=== PATIENT | female | born 1955 | race Caucasian/White ===

== ENCOUNTER → 2024-03-20 16:02 | Outpatient (REF) | payer MEDICARE, OTHER, SELFPAY | LOC: HWRCS 16:02 | PROVIDERS: ATTENDING PHYSICIAN Internal Medicine Cardiovascular Disease; FAMILY PHYSICIAN Emergency Medicine | DX: Z95.2 Presence of prosthetic heart valve (principal) | CPT/HCPCS: 93306 ==

== ENCOUNTER → 2024-03-21 09:59 | Outpatient (REF) | payer MEDICARE, OTHER, SELFPAY | LOC: DHVS 09:59 | PROVIDERS: ATTENDING PHYSICIAN Surgery Vascular Surgery | DX: I65.23 Occlusion and stenosis of bilateral carotid arteries (principal) | CPT/HCPCS: 93880 ==

== ENCOUNTER → 2024-03-28 11:49 | Outpatient (REF) | payer MEDICARE, OTHER, SELFPAY | LOC: DHCBC/DCA 11:49 | PROVIDERS: ATTENDING PHYSICIAN Internal Medicine Cardiovascular Disease; FAMILY PHYSICIAN Emergency Medicine | DX: Z86.39 Personal history of other endocrine, nutritional and metabolic disease (principal); R06.09 Other forms of dyspnea | CPT/HCPCS: 78452; 93017; A9500 ==

== ENCOUNTER → 2024-04-26 15:10 | Outpatient (REF) | payer MEDICARE, OTHER, SELFPAY | LOC: RAD 15:10 | PROVIDERS: ATTENDING PHYSICIAN Internal Medicine Cardiovascular Disease; FAMILY PHYSICIAN Emergency Medicine | DX: Z95.2 Presence of prosthetic heart valve (principal); I10 Essential (primary) hypertension; Z86.39 Personal history of other endocrine, nutritional and metabolic disease; E78.2 Mixed hyperlipidemia; Z86.2 Personal history of diseases of the blood and blood-forming organs and certain disorders involving the immune mechanism; I77.9 Disorder of arteries and arterioles, unspecified; R91.1 Solitary pulmonary nodule; G47.33 Obstructive sleep apnea (adult) (pediatric); N18.31 Chronic kidney disease, stage 3a; M79.604 Pain in right leg; M79.605 Pain in left leg; R06.09 Other forms of dyspnea | CPT/HCPCS: 93922; 93925 ==

== ENCOUNTER → 2024-05-02 12:11 | Outpatient (REF) | payer MEDICARE, OTHER, SELFPAY ==
[2024-05-02 14:03] LABS: Blood Urea Nitrogen 26 mg/dl (7-17); Calcium 9.3 mg/dl (8.4-10.2); Carbon Dioxide 26 mmol/L (22-30); Chloride 104 mmol/L (98-107); Glucose 110 mg/dl (70-99); Potassium 4.4 mmol/L (3.5-5.1); Sodium 139 mmol/L (135-145); eGFR > 60.00
== END ==
LOC: REG 12:11
PROVIDERS: ATTENDING PHYSICIAN Physician Assistant; FAMILY PHYSICIAN Emergency Medicine
DX: I65.23 Occlusion and stenosis of bilateral carotid arteries (principal)
CPT/HCPCS: 36415; 80048

== ENCOUNTER → 2024-05-03 09:08 | Outpatient (REF) | payer MEDICARE, OTHER, SELFPAY | LOC: RAD 09:08 | PROVIDERS: ATTENDING PHYSICIAN Surgery Vascular Surgery; FAMILY PHYSICIAN Emergency Medicine | DX: I65.23 Occlusion and stenosis of bilateral carotid arteries (principal) | CPT/HCPCS: 70496; 70498; Q9967 ==

== ENCOUNTER 2024-06-07 08:18 | Day surgery (SDC) | payer MEDICARE, OTHER, SELFPAY ==
[2024-06-07 08:42] VITALS: BMI 25.9
[2024-06-07 09:22] LABS: Hematocrit 35.3 % (37.0-47.0); Hemoglobin 12.1 g/dL (12.0-16.0); Mean Corp Hgb Conc. 34.3 g/dL (33.0-37.0); Mean Corpuscular Hgb 29.9 pg (27.0-31.0); Mean Corpuscular Volume 87.2 fL (81.0-99.0); Mean Platelet Volume 10.4 fL (7.4-10.4); Platelet Count 239 10^3/uL (130-400); Red Blood Cell Count 4.05 10^6/uL (4.20-5.40); Red Cell Dist. Width 12.5 % (11.5-14.5); White Blood Cell Count 6.9 10^3/uL (4.8-10.8)
[2024-06-07 09:28] LABS: INR 0.95; PT 12.5 Sec (11.4-14.6)
[2024-06-07 09:29] LABS: APTT 25.9 Sec (23.4-35.0)
[2024-06-07 09:31] LABS: Blood Urea Nitrogen 19 mg/dl (7-17); Calcium 9.1 mg/dl (8.4-10.2); Carbon Dioxide 26 mmol/L (22-30); Chloride 102 mmol/L (98-107); Estimated Creatinine Clearance 43 ml/min; Glucose 143 mg/dl (70-99); Potassium 4.3 mmol/L (3.5-5.1); Sodium 139 mmol/L (135-145); eGFR > 60.00
== END 2024-06-07 09:25 | disposition home or self-care (01) ==
LOC: CATH 08:18
PROVIDERS: ATTENDING PHYSICIAN Surgery Vascular Surgery; FAMILY PHYSICIAN Emergency Medicine; OTHER PHYSICIAN Internal Medicine Cardiovascular Disease
DX: I70.212 Atherosclerosis of native arteries of extremities with intermittent claudication, left leg (principal); Z79.82 Long term (current) use of aspirin; Z53.09 Procedure and treatment not carried out because of other contraindication
CPT/HCPCS: 80048; 85027; 85610; 85730

== ENCOUNTER 2024-06-14 06:17 | Day surgery (SDC) | payer MEDICARE, OTHER, SELFPAY ==
[2024-06-14] VITALS (19 sets, daily range): BP systolic 131–179; BP diastolic 69–84; BMI 25.8
[2024-06-14 06:57] LABS: Glucose - Point of Care 134 mg/dl (70-99)
[2024-06-14] MEDS: NSS 500 IV (07:01)
--- NOTE | 2024-06-14 07:25 | W.SUR.PREOP ---
Pre-Operative Surgical Note
-
I have examined this patient prior to the performance of the scheduled procedure.
The patient's condition is unchanged from the time of the current History and
Physical and the patient is able to undergo the scheduled procedure.
[2024-06-14] MEDS: PLAVIX 300 MG PO (09:40)
[2024-06-14 09:57] LABS: Glucose - Point of Care 147 mg/dl (70-99)
--- NOTE | 2024-06-14 09:58 | W.SUR.POST ---
Surgical Immediate Post Op
Note
Pre Op Diagnosis: PAD
Post Op Diagnosis: PAD
Procedure Performed: Left lower extremity angiogram, shockwave lithotripsy to SFA-popliteal artery, stent placement to SFA
Primary Surgeon: Pat
Anesthesia: Local and sedation
Estimated Blood Loss: Less than 2 cc
Fluids: See anesthesia flowsheet
Drains/Shunts: None
Specimens/Cultures: None
Doppler/Duplex/Angio (Y/N): Y
Complications: None
Operative Findings: Successful stent placement
[2024-06-14] MEDS: NSS 1000 IV (10:10)
[2024-06-14 10:59] LABS: ALT (SGPT) 17 U/L (0-35); AST (SGOT) 28 U/L (14-36); Albumin 4.3 g/dl (3.5-5.0); Alkaline Phosphatase 72 U/L (38-126); Total Bilirubin 0.5 mg/dl (0.2-1.3); Total Protein 6.9 g/dl (6.3-8.2)
--- NOTE | 2024-06-14 16:29 | OR.RPT ---
Operative Report
Operative Report
Date of Operation: 06/14/2024
Pre Op Diagnosis: Debilitating left lower extremity claudication
Post Op Diagnosis: Debilitating left lower extremity claudication
Procedure:
1.) Intravascular lithotripsy to left above-knee popliteal artery and superficial femoral artery (6 mm x 60 mm M5+ shockwave balloon)
2.) Balloon angioplasty and drug-eluting stent to superficial femoral artery stenosis (6 mm x 120 mm Zilver PTX)
3.) Diagnostic aortobiiliac arteriogram
4.) Diagnostic BILATERAL lower extremity arteriograms
5.) Ultrasound-guided percutaneous access to the right common femoral artery
Surgeon: Caesar Stewart III, MD
Anesthesia: Sedation with local
Fluoroscopy:
30 min
112 mGy
24.32 Gy.cm2
Complications: None
Estimated Blood Loss: Minimal
History and Indications for Procedure: 68-year-old female with known peripheral arterial occlusive disease and debilitating left lower extremity claudication
Procedure in Detail: Walker Riley was correctly identified and placed supine on the operating table. After adequate induction of anesthesia the bilateral groins were prepped and draped in the usual sterile fashion. A timeout was performed with the
nursing and anesthesia staff confirming the patient's identity as well as the nature and laterality of the procedure.
The right common femoral artery was identified under ultrasound guidance. The artery was patent. The superior and inferior aspects of the femoral head were identified with radiographic guidance and marked at the skin level. The proposed puncture
site was infiltrated with local anesthesia. We saved a copy of the ultrasound image to the medical record. Under ultrasound guidance we accessed the right common femoral artery with a micropuncture needle and upsized to a 5 Fr sheath over a [employer]
wire. The wire and a ShepherPlaid hook flush catheter were advanced into the distal abdominal aorta and a diagnostic aorto-biiliac arteriogram was performed:
AORTO-ILIAC ARTERIOGRAM:
Aorta: Widely patent with no stenosis identified
Right common iliac artery: Widely patent with no stenosis identified
Right external iliac artery: Widely patent with no stenosis identified
Left common iliac artery: Widely patent with no stenosis identified
Left external iliac artery: Widely patent with no stenosis identified
Under roadmap guidance using a Glidewire and the SheLingueeerPlaid hook catheter we selected the left common iliac artery and then the external iliac artery. A catheter was tracked up and over the aortic bifurcation and placed in the distal external iliac
artery. A diagnostic left lower extremity arteriogram was then performed which demonstrated the following:
LEFT LOWER EXTREMITY:
Common femoral artery: Patent with no stenosis identified
Profunda femoral artery: Patent with no stenosis identified
Superficial femoral artery: Patent. Moderate degree of stenosis identified proximally. Scattered areas of heavily calcified high-grade stenosis seen in the mid and distal superficial femoral artery.
Popliteal artery: Patent. Calcified plaque with associated stenosis identified above the knee
Extensive tibial artery occlusive disease identified
Anterior tibial artery: Patent but diffusely diseased. Appears to occlude distally. Patent.
Tibioperoneal trunk: Patent
Peroneal artery: Diffusely diseased and occluded distally
Posterior tibial artery: Occluded with limited reconstitution distally
ENDOVASCULAR INTERVENTION: Systemic heparin was administered. Exchanged out for a 6 Fr 45 cm sheath over a Storq wire. Selected the superficial femoral artery artery under roadmap guidance with Quickcross catheter and glidewire. The calcified SFA
and popliteal artery disease was crossed with a Quickcross and Glidewire. The wire and catheter were advanced into the popliteal artery behind the knee artery and subtraction angio confirmed proper position in the true lumen. Exchanged out for a
grand slam 0.014 wire. Due to the heavily calcified nature of the arterial disease and in an effort to modify the calcium to achieve maximum luminal gain with endovascular intervention I elected to proceed with intravascular lithotripsy. A 6 mm x
60 mm M5+ Shockwave balloon was placed across the stenosis under roadmap guidance. Alternating rounds of lithotripsy pulse delivery at sub-nominal pressure and angioplasty at nominal pressure was performed across the popliteal artery and superficial
femoral artery stenoses. In between rounds of pulse delivery and angioplasty the balloon was deflated and repositioned under roadmap guidance. All 300 pulses were delivered.
Subsequent arteriogram demonstrated a significantly improved result but areas of residual stenosis were identified in the mid and proximal superficial femoral artery. I then brought into position a 6 mm x 120 mm Zilver PTX stent. This was placed
in the desired location under roadmap guidance and deployed. The stent was then profiled with a 6 mm x 100 mm angioplasty balloon. A noncompliant 6 mm x 20 mm angioplasty balloon was used to treat two areas in the stent with residual extrinsic
calcified plaque present.
COMPLETION ARTERIOGRAM: Excellent technical result. Widely patent superficial femoral artery and popliteal artery with no significant residual stenosis identified. Brisk flow through the stent. Again demonstrated was significant tibial artery
disease distally.
Satisfied with this result we concluded the procedure. The sheath tip was pulled back into the right external iliac artery. Protamine was administered. A runoff arteriogram of the right lower extremity was performed which demonstrated the
following:
RIGHT LOWER EXTREMITY:
Common femoral artery: Patent with no stenosis identified
Profunda femoral artery: Patent with no stenosis identified
Superficial femoral artery: Patent. Moderate degree of calcified stenosis identified in the mid to distal segment
Popliteal artery: Patent no significant stenosis identified.
The patient tolerated the procedure well and was taken to the recovery area in stable condition.
Attestation: I was present and responsible for the entire procedure.
Signed:
Caesar Stewart III, MD
[facility]
[phone] (xiel)
== END 2024-06-14 14:33 | disposition home or self-care (01) ==
LOC: CATH 06:17
PROVIDERS: Nurse Practitioner Acute Care; ATTENDING PHYSICIAN Surgery Vascular Surgery; FAMILY PHYSICIAN Emergency Medicine; OTHER PHYSICIAN Internal Medicine Cardiovascular Disease
DX: I70.212 Atherosclerosis of native arteries of extremities with intermittent claudication, left leg (principal); Z79.84 Long term (current) use of oral hypoglycemic drugs; Z79.899 Other long term (current) drug therapy; Z79.82 Long term (current) use of aspirin; Z79.85 Long-term (current) use of injectable non-insulin antidiabetic drugs; I65.29 Occlusion and stenosis of unspecified carotid artery; E11.22 Type 2 diabetes mellitus with diabetic chronic kidney disease; I12.9 Hypertensive chronic kidney disease with stage 1 through stage 4 chronic kidney disease, or unspecified chronic kidney disease; N18.9 Chronic kidney disease, unspecified; I25.10 Atherosclerotic heart disease of native coronary artery without angina pectoris; I25.2 Old myocardial infarction
CPT/HCPCS: C9765; 75625; 75716; 76937; 80076; 82962; C1725; C1769; C1874; C1894; Q9967

== ENCOUNTER 2024-07-10 20:51 | Emergency (ER) | payer MEDICARE, OTHER, SELFPAY ==
[2024-07-10] VITALS (9 sets, daily range): BP systolic 114–152; BP diastolic 53–72; BMI 25.2
--- NOTE | 2024-07-10 21:07 | ED.GENMED ---
History of Present Illness
<Guillermina Mendieta MD, Resident - Last Filed: 07/10/24 22:22>
General
Chief Complaint: Allergic Reaction
Source: patient, family and other (HER DAUGHTER SAVI)
Time Seen by Provider: 07/10/24 21:06
History of Present Illness
History of Present Illness:
The patient is a 68 years old female who presented to ER today after she was stung by 8-10 bees. The patient's father reported that her mother was gardening today and she come to home screaming. Her daughter noticed that there is a bar a few bees
based on her trying to stung. The patient told to her daughter something is wrong with herself and and her daughter called 911. By her daughter talking to 911, the patient passed out for about 1 minute. Heart catheter reported she did not hit
her head or she did not have trauma. Father of the patient noticed that she had some difficulty with her breathing when she passed out but she states that she was sure she her mother's breathing because of her chest movements. The patient reported
her blood pressure got when they checked it was around 70 and she was given epi by emergency crew.
PMH: HT, HL CKD, DM
If applicable-neuro sx onset
Onset of symptoms known: Yes
Date of onset of symptoms: 07/10/24
Past History
<Guillermina Mendieta MD, Resident - Last Filed: 07/10/24 22:22>
Past History
ED Past Medical History: HTN, Hypercholesterolemia, IDDM, OR and Other (AV stenosis)
ED Past Surgical History: Cardiac (AV replacement)
Social History
Personal:
Living: with family
Phy Exam
<Guillermina Mendieta MD, Resident - Last Filed: 07/10/24 22:22>
General Physical Exam
General Presentation: moderate distress
General Skin: warm
General Mental: alert
Cardiovascular Exam
Cardiovascular Exam: regular rate/rhythm and no edema
Pulmonary Exam
Pulmonary Exam: lungs clear, no respiratory distress, no stridor and no wheezing
Neurological Exam
Neurological Exam: alert and oriented x3
Skin Exam
Skin Exam: other (White centered Erythema was observed on around 5 spots on the right hand 3 spots on the back. No discharge or foreign body was observed. )
Course
<Guillermina Mendieta MD, Resident - Last Filed: 07/10/24 22:22>
Orders/Labs/Results
Orders:
Orders
07/10/24 21:15
Electrocardiogram (*1) Urgent
Reason for Study: Syncope
EKG- Treatment ONCE
Dexamethasone Sod Phosphate [Decadron] 8 mg IV NOW STA
Famotidine [Pepcid] 20 mg IV NOW STA
07/10/24 21:26
Basic Metabolic Panel Urgent
Complete Blood Count/With Diff Urgent
Abnormal Lab Results
07/10/24
21:26
RBC 4.09 L 10^6/uL
(4.20-5.40)
Hct 34.8 L %
(37.0-47.0)
MPV 10.5 H fL
(7.4-10.4)
Chloride 108 H mmol/L
(98-107)
BUN 21 H mg/dl
(7-17)
Glucose 129 H mg/dl
(70-99)
07/10/24 21:26
07/10/24 21:26
Vital Signs
Initial and Last Documented VS:
Initial Vital Signs
BP
152/64
07/10/24 20:55
Last Documented Vital Signs
Temp Pulse Resp BP Pulse Ox
98.9 F 80 14 126/72 96
07/10/24 20:58 07/10/24 22:30 07/10/24 22:30 07/10/24 22:30 07/10/24 22:30
<Shonda Sykes MD - Last Filed: 07/10/24 23:01>
Orders/Labs/Results
Orders:
Orders
07/10/24 21:15
Electrocardiogram (*1) Urgent
Reason for Study: Syncope
EKG- Treatment ONCE
Dexamethasone Sod Phosphate [Decadron] 8 mg IV NOW STA
Famotidine [Pepcid] 20 mg IV NOW STA
07/10/24 21:26
Basic Metabolic Panel Urgent
Complete Blood Count/With Diff Urgent
Abnormal Lab Results
07/10/24
21:26
RBC 4.09 L 10^6/uL
(4.20-5.40)
Hct 34.8 L %
(37.0-47.0)
MPV 10.5 H fL
(7.4-10.4)
Chloride 108 H mmol/L
(98-107)
BUN 21 H mg/dl
(7-17)
Glucose 129 H mg/dl
(70-99)
07/10/24 21:26
07/10/24 21:26
Vital Signs
Initial and Last Documented VS:
Initial Vital Signs
BP
152/64
07/10/24 20:55
Last Documented Vital Signs
Temp Pulse Resp BP Pulse Ox
98.9 F 80 14 126/72 96
07/10/24 20:58 07/10/24 22:30 07/10/24 22:30 07/10/24 22:30 07/10/24 22:30
<Guillermina Mendieta MD, Resident - Last Filed: 07/10/24 22:22>
MDM/Problems Addressed
Differential Diagnosis Includes:
allergic shock, hypotension , cardiac arrhythmia
MDM/Problems Addressed:
CBC, CMP and ECG was ordered. CBC and CMP results were unremarkable. EKG of the patient shows sinus rhythm. During the hospitalization patient's blood pressure was in the normal range the patient did not have hypotension.
Patient is a 68-year-old woman who presented today to ER after she was stung by 8-10 bees. Her daughter reported that her mother was gardening at that time and come back inside screaming. Her daughter cleaned the piece inside of her T-shirt. At
that time her mother was screaming as 'something is wrong'. Then her daughter decided to call 911. While she was talking on the phone she said that she saw her mother passed out. She noticed her mother had some difficulty with breathing at that
time but her mother kept breaking and she observed her chest movements. Her mother passed out about 1 minute. Ambulance crew checked her blood pressure and it was found low. She was given epi by ambulance crew and she was brought to the ER.
The patient was given 20 mg of famotidine and 8 mg of dexamethasone to address her allergic reaction. It was decided to prescribe EpiPen and famotidine and Benadryl for the discharge . It was plan to train patient for EpiPen use.
<Guillermina Mendieta MD, Resident - Last Filed: 07/10/24 22:22>
*Critical Care Note
Total Time (30-74mins, 75-104mins- exclusive of procedures): Not Applicable
ED Attending Note
<Guillermina Mendieta MD, Resident - Last Filed: 07/10/24 22:22>
-
Portions of this chart may have been created with voice recognition software.� Occasional wrong word or��sound alike� substitutions may have occurred due to the inherent limitations of voice recognition software.
<Shonda Sykes MD - Last Filed: 07/10/24 23:01>
ED Attending Note
Patient seen and examined by attending physician: Yes
I performed a history and physical exam of patient and discussed management with resident, I reviewed resident's note and agree with documented findings and plan of care.: Yes
ED Attending Note:
Patient is a 68-year-old woman with history of hypertension, hyperlipidemia, CKD, diabetes presenting to the emergency department with allergic reaction. Patient states that she was in the yard when she was stung by at least 5 bees. She states
that she was stung on her back and her arms. She went inside her was and her daughter was removing the stingers. She then developed swelling to her hands and started to have difficulty breathing. She did have a syncopal event. Patient does not
remember much of the details. However upon talking to the daughter patient's daughter states that patient was having a hard time breathing so patient's daughter called 911 and that she had a syncopal event. Only lasted a few seconds and then she
regained consciousness. She denies any chest pain or shortness of breath. Is never happened to her before. She is allergic to few medications. She was stung by bee last month that did not have this issue. Upon medics arrival patient was
hypotensive to the 70s so they did administer EpiPen and gave her Benadryl. Patient does state that she feels much better however is very jittery.
Vitals here are unremarkable and exam does show erythematous areas where the stings were (back, right upper extremity, left hand). No stinger seen. Lungs are clear to auscultation bilaterally. Neuroexam without any focal deficits.
Given patient's allergic reaction does appear that she went to anaphylactic shock. She is receiving IV fluids. She did receive epinephrine and Benadryl. Will give her Decadron and famotidine. Will monitor her for at least 4 hours since receiving
the epinephrine. Given the syncope likely from the shock state or vagal reaction. Less likely to be arrhythmia. Does not seem consistent with hypovolemia or neuro cause. Will obtain basic blood work as well as an EKG.
EKG per my interpretation normal sinus rhythm. Initial blood work unremarkable. BMP unremarkable. Patient signed out to oncoming attending pending reevaluation. If everything is unremarkable patient will likely be discharged home with EpiPen.
Discharge Plan
Departure
Discharge Problem:
Anaphylaxis
Instructions: Allergic Reaction ED, Anaphylaxis - Discharge instructions
Prescriptions:
New
epinephrine [EpiPen 2-Nhan] 0.3 mg/0.3 mL auto-injector
0.3 mg IM ONCE Qty: 2 0RF
No Action
aspirin 81 MG tablet,delayed release (DR/EC)
81 mg PO DAILY
amlodipine 10 MG tablet
10 mg PO DAILY
losartan 25 MG tablet
25 mg PO DAILY
Repatha SureClick 140 MG/ML pen injector
140 mg SQ .[id number]
venlafaxine [Effexor XR] 37.5 MG capsule,extended release 24hr
37.5 mg PO DAILY
omeprazole 40 MG capsule,delayed release(DR/EC)
40 mg PO DAILY
acetaminophen 325 MG tablet
650 mg PO Q4HPRN PRN (Reason: mild pain or temp >/= 100.4 F) 0RF
insulin degludec [Tresiba FlexTouch U-100] 100 unit/mL (3 mL) Insulin Pen
15 unit SC HS
ezetimibe 10 mg Tablet
10 mg PO DAILY
dapagliflozin propanediol [Farxiga] 10 mg Tablet
10 mg PO DAILY
latanoprost 0.005 % Drops
1 drp OPHTHALMIC (EYE) QPM
Rx Instructions:
1 gtt each eye
Ozempic 1 mg/dose (4 mg/3 mL) Pen Injector
1 mg SC QWEEK
clopidogrel 75 mg Tablet
75 mg PO DAILY Qty: 90 0RF
atorvastatin 10 mg Tablet
10 mg PO QPM Qty: 120 0RF
Interventions
Interventions:
*Risk Screen - Suicide Last Done: 07/10/24 20:58
*General Assessment Last Done: 07/10/24 20:58
*Neglect/Abuse Screening Last Done: 07/10/24 20:58
ED- Fall Risk Assessment Last Done: 07/10/24 20:58
*ED COVID-19 Vaccine History Last Done: 07/10/24 20:58
ED- Cardiac Assessment Last Done: 07/10/24 21:03
ED- Pulmonary Assessment Last Done: 07/10/24 21:03
ED-Skin Assessment Last Done: 07/10/24 20:58
Discharge Date and Time
Print Language: BOTSWANAN
[2024-07-10] MEDS: PEPCID 20 MG IV (21:33)
[2024-07-10] MEDS: DECADRON 8 MG IV (21:33)
[2024-07-10 21:52] LABS: % Basophils 0.1 % (0-2); % Eosinophils 2.1 % (0-6); % Immature Granulocytes 0.4 % (0-0.5); % Lymphocytes 24.1 % (20.5-51.1); % Monocytes 4.3 % (1.7-9.3); Absolute Eosinophils 0.2 10^3/uL (0-0.7); Absolute Lymphocytes 2.2 10^3/uL (1.2-3.4); Absolute Monocytes 0.4 10^3/uL (0.1-0.6); Absolute Neutrophils 6.3 10^3/uL (1.4-6.5); Hematocrit 34.8 % (37.0-47.0); Hemoglobin 12.1 g/dL (12.0-16.0); Mean Corp Hgb Conc. 34.8 g/dL (33.0-37.0); Mean Corpuscular Hgb 29.6 pg (27.0-31.0); Mean Corpuscular Volume 85.1 fL (81.0-99.0); Mean Platelet Volume 10.5 fL (7.4-10.4); Nucleated Red Blood Cells % 0 %; Platelet Count 222 10^3/uL (130-400); Red Blood Cell Count 4.09 10^6/uL (4.20-5.40); Red Cell Dist. Width 12.7 % (11.5-14.5); White Blood Cell Count 9.1 10^3/uL (4.8-10.8)
[2024-07-10 22:13] LABS: Blood Urea Nitrogen 21 mg/dl (7-17); Calcium 8.4 mg/dl (8.4-10.2); Carbon Dioxide 22 mmol/L (22-30); Chloride 108 mmol/L (98-107); Estimated Creatinine Clearance 40 ml/min; Glucose 129 mg/dl (70-99); Sodium 141 mmol/L (135-145); eGFR > 60.00
== END 2024-07-11 00:44 | disposition home or self-care (01) ==
LOC: EMR 20:51
PROVIDERS: EMERGENCY PHYSICIAN Student in an Organized Health Care Education/Training Program; FAMILY PHYSICIAN Emergency Medicine
DX: T63.441A Toxic effect of venom of bees, accidental (unintentional), initial encounter (principal); T78.2XXA Anaphylactic shock, unspecified, initial encounter; I12.9 Hypertensive chronic kidney disease with stage 1 through stage 4 chronic kidney disease, or unspecified chronic kidney disease; N18.9 Chronic kidney disease, unspecified; E11.22 Type 2 diabetes mellitus with diabetic chronic kidney disease; E78.00 Pure hypercholesterolemia, unspecified
CPT/HCPCS: 99284; 96374; 96375; 80048; 85025; 93005

== ENCOUNTER → 2024-07-29 09:57 | Outpatient (REF) | payer MEDICARE, OTHER, SELFPAY | LOC: RAD 09:57 | PROVIDERS: ATTENDING PHYSICIAN Surgery Vascular Surgery; FAMILY PHYSICIAN Emergency Medicine | DX: I73.9 Peripheral vascular disease, unspecified (principal) | CPT/HCPCS: 93922; 93925 ==

== ENCOUNTER → 2024-11-01 13:29 | Outpatient (REF) | payer MEDICARE, OTHER, SELFPAY | LOC: HWWDC 13:29 | PROVIDERS: ATTENDING PHYSICIAN Obstetrics & Gynecology; FAMILY PHYSICIAN Emergency Medicine | DX: Z12.31 Encounter for screening mammogram for malignant neoplasm of breast (principal) | CPT/HCPCS: 77063; 77067 ==

== ENCOUNTER → 2024-11-14 13:04 | Outpatient (REF) | payer MEDICARE, OTHER, SELFPAY | LOC: RAD 13:04 | PROVIDERS: ATTENDING PHYSICIAN Surgery Vascular Surgery; FAMILY PHYSICIAN Emergency Medicine | DX: I65.23 Occlusion and stenosis of bilateral carotid arteries (principal) | CPT/HCPCS: 93880 ==

== ENCOUNTER → 2025-01-28 10:33 | Outpatient (REF) | payer MEDICARE, OTHER, SELFPAY | LOC: HWRAD 10:33 | PROVIDERS: ATTENDING PHYSICIAN Obstetrics & Gynecology; FAMILY PHYSICIAN Emergency Medicine | DX: Z78.0 Asymptomatic menopausal state (principal) | CPT/HCPCS: 77080 ==

== ENCOUNTER → 2025-02-06 12:59 | Outpatient (REF) | payer MEDICARE, OTHER, SELFPAY | LOC: RAD 12:59 | PROVIDERS: ATTENDING PHYSICIAN Physician Assistant; FAMILY PHYSICIAN Emergency Medicine | DX: I73.9 Peripheral vascular disease, unspecified (principal); I65.29 Occlusion and stenosis of unspecified carotid artery; I65.23 Occlusion and stenosis of bilateral carotid arteries | CPT/HCPCS: 93880; 93922; 93925 ==

== ENCOUNTER → 2025-02-07 10:43 | Outpatient (REF) | payer MEDICARE, OTHER, SELFPAY ==
--- NOTE | 2025-02-07 13:00 | EEG.RPT ---
Electroencephalogram Report
Recording
Date of EE02/07/25
Type of EEG: Routine
Length of EEG recordin minutes
Done with Video Recording: Yes
Patient Status: Outpatient
Recording Conditions: Awake and Drowsy
Hyperventilation Performed: Yes
Photic Stimulation Performed: Yes
Report
LESS THAN 1 HOUR EEG INTERPRETATION:
Unremarkable EEG for age
CLINICAL CORRELATION:
A normal EEG does not rule out a diagnosis of epilepsy. If clinical suspicion for seizure persists, a prolonged recording may be warranted.
Clinical correlation is advised.
METHODS:
A 21 channel digitized electroencephalogram (EEG) was performed using the 10/20 international system of electrode placement and one-lead of ECG recorded. The PerioSeal quantitative EEG system was utilized.
ELECTROENCEPHALOGRAPHER IMPRESSION(S):
Quality of study
Good
Background
There was an unremarkable anterior-posterior voltage gradient of alpha frequency.
With eye opening the background activity changed to a low voltage mixture of frequencies.
There were no significant asymmetries of background activity noted.
Sleep
Drowsiness present
Hyperventilation
No activation
Photic Stimulation
No activation
ECG
Normal sinus rhythm
[2025-02-07 13:32] LABS: ALT (SGPT) 20 U/L (0-35); AST (SGOT) 25 U/L (14-36); Alkaline Phosphatase 86 U/L (38-126); Blood Urea Nitrogen 20 mg/dl (7-17); Calcium 9.7 mg/dl (8.4-10.2); Carbon Dioxide 27 mmol/L (22-30); Chloride 99 mmol/L (98-107); Direct Bilirubin 0.2 mg/dl (0.0-0.4); Glucose 154 mg/dl (70-99); HDL Cholesterol 85 mg/dl; Iron 140 ug/dl (37-170); LDL Cholesterol, Calculated 76 mg/dl; Potassium 4.3 mmol/L (3.5-5.1); Sodium 137 mmol/L (135-145); Total Bilirubin 0.7 mg/dl (0.2-1.3); Total Cholesterol 188 mg/dl (50-199); Total Protein 7.9 g/dl (6.3-8.2); Triglyceride 138 mg/dl (10-149); Very Low Density Lipoprotein 27 mg/dl (0-30); eGFR > 60.00
[2025-02-07 13:42] LABS: Percent Saturation 39 % (20-50); Total Iron Binding Capacity 353 ug/dl (265-497)
[2025-02-07 13:53] LABS: Vitamin D, 25-OH*** 36.7 ng/mL (30-80)
[2025-02-07 14:05] LABS: Glycohemoglobin (HgbA1c) 7.5 % (4.0-5.6)
[2025-02-07 14:07] LABS: TSH Reflex To Free T4 2.27 uIU/ml (0.47-4.68)
[2025-02-07 14:26] LABS: Vitamin B12 286 pg/ml (239-931)
[2025-02-09 21:29] LABS: Vitamin D 1,25 Dihydroxy 39.5 pg/mL (19.9-79.3)
== END ==
LOC: EEG 10:43
PROVIDERS: ATTENDING PHYSICIAN Psychiatry & Neurology Neurology; FAMILY PHYSICIAN Emergency Medicine; OTHER PHYSICIAN Internal Medicine Cardiovascular Disease; REFERRING PHYSICIAN Internal Medicine
DX: R40.4 Transient alteration of awareness (principal); E78.5 Hyperlipidemia, unspecified; N18.31 Chronic kidney disease, stage 3a; I10 Essential (primary) hypertension; M54.2 Cervicalgia; E11.65 Type 2 diabetes mellitus with hyperglycemia; Z79.4 Long term (current) use of insulin; I65.21 Occlusion and stenosis of right carotid artery
CPT/HCPCS: 72050; 80053; 80061; 82248; 82306; 82607; 82652; 83036; 83540; 83550; 84443; 95816

== ENCOUNTER → 2025-03-11 10:29 | Outpatient (REF) | payer MEDICARE, OTHER, SELFPAY | LOC: RCS 10:29 | PROVIDERS: ATTENDING PHYSICIAN Internal Medicine Cardiovascular Disease; FAMILY PHYSICIAN Emergency Medicine | DX: I10 Essential (primary) hypertension (principal) | CPT/HCPCS: 93306 ==

== ENCOUNTER 2025-05-02 06:08 | Day surgery (SDC) | payer MEDICARE, OTHER, SELFPAY ==
[2025-05-02] VITALS (22 sets, daily range): BP systolic 132–165; BP diastolic 68–83; BMI 29.2
[2025-05-02] MEDS: NSS 500 IV (07:00)
[2025-05-02 07:10] LABS: Glucose - Point of Care 111 mg/dl (70-99)
[2025-05-02 07:17] LABS: Hematocrit 34.9 % (37.0-47.0); Mean Corp Hgb Conc. 34.4 g/dL (33.0-37.0); Mean Corpuscular Hgb 29.5 pg (27.0-31.0); Mean Corpuscular Volume 85.7 fL (81.0-99.0); Mean Platelet Volume 10.5 fL (7.4-10.4); Platelet Count 216 10^3/uL (130-400); Red Blood Cell Count 4.07 10^6/uL (4.20-5.40); Red Cell Dist. Width 13.2 % (11.5-14.5); White Blood Cell Count 7.4 10^3/uL (4.8-10.8)
[2025-05-02 07:21] LABS: Blood Urea Nitrogen 20 mg/dl (7-17); Calcium 8.4 mg/dl (8.4-10.2); Carbon Dioxide 24 mmol/L (22-30); Chloride 107 mmol/L (98-107); Glucose 131 mg/dl (70-99); Potassium 4.2 mmol/L (3.5-5.1); Sodium 140 mmol/L (135-145); eGFR > 60.00
[2025-05-02 07:23] LABS: INR 0.88; PT 12.5 Sec (11.4-14.6)
[2025-05-02 07:24] LABS: APTT 24.8 Sec (23.4-35.0)
--- NOTE | 2025-05-02 07:28 | HP.FOC2 ---
Focused History & Physical
Chief Complaint
HPI:
Chief Complaint: No complaints today
HPI / Indication for Planned Procedure: 69-year-old female here today for planned left extremity arteriogram, possible VICE PRINCIPAL/stent/IV with Dr. Stewart. Patient has known PAD status post left lower extremity above-knee pop lithotripsy and SFA stenting.
Patient has 75% in-stent restenosis on the left and bilateral tibial artery disease. Plan is to intervene on this to prevent progression and further stenosis. Patient presenting at her baseline health today with no recent changes. No changes in
medications. No recent illnesses or traumas.
Vascular Surgical History
06/14/24
1.) Intravascular lithotripsy to left above-knee popliteal artery and superficial femoral artery (6 mm x 60 mm M5+ shockwave balloon)
2.) Balloon angioplasty and drug-eluting stent to superficial femoral artery stenosis (6 mm x 120 mm Zilver PTX)
3.) Diagnostic aortobiiliac arteriogram
4.) Diagnostic BILATERAL lower extremity arteriograms
5.) Ultrasound-guided percutaneous access to the right common femoral artery
CEA
Relevant Past Medical History: Other (See above)
Relevant Past Surgical History: Positive for (See above)
Review of Systems
Review of Pertinent Systems: All Systems Negative
Medication
See Medication form for detailed medications: Yes
Medication List (including Herbals & OTC):
amlodipine 10 mg tablet 10 mg PO DAILY Blood pressure 07/06/18
aspirin 81 mg tablet,delayed release 81 mg PO DAILY Blood clot prevention/tx 07/06/18
losartan 25 mg tablet 25 mg PO DAILY Blood pressure 07/06/18
evolocumab 140 mg/mL subcutaneous pen injector (Repatha SureShawick) 140 mg SQ Q2W High cholesterol 11/17/20
omeprazole 40 mg capsule,delayed release 40 mg PO DAILY Gastrointestinal issue 11/17/20
venlafaxine 37.5 mg capsule,extended release 24 hr (Effexor XR) 37.5 mg PO DAILY Depression 11/17/20
dapagliflozin propanediol 10 mg tablet (Farxiga) 10 mg PO DAILY 06/05/24
ezetimibe 10 mg tablet 10 mg PO DAILY 06/05/24
insulin degludec 100 unit/mL (3 mL) subcutaneous pen (Tresiba FlexTouch U-100 insulin) 20 unit SC HS 06/05/24
latanoprost 0.005 % eye drops 1 drp BOTH EYES HS 06/07/24
semaglutide 1 mg/dose (4 mg/3 mL) subcutaneous pen injector (Ozempic) 1 mg SC QWEEK 06/12/24
clopidogrel 75 mg tablet 75 mg PO DAILY #90 tabs 06/14/24
Estrogen Ring 1 dose vaginal Q3M 02/27/25
atorvastatin 10 mg tablet 10 mg PO DAILY 02/27/25
cholecalciferol (vitamin D3) 25 mcg (1,000 unit) capsule (Vitamin D3) 25 mcg PO DAILY 02/27/25
epinephrine 0.3 mg/0.3 mL injection, auto-injector (EpiPen 2-Nhan) 0.3 mg IM PRN PRN allergies 02/27/25
acetaminophen 500 mg tablet 1,000 mg PO Q6H PRN pain 04/30/25
amoxicillin 500 mg capsule 2,000 mg PO PRN PRN dental procedure 04/30/25
calcium 600 mg (as carbonate)-vit D3 20 mcg (800 unit) chewable tablet (Caltrate plus D) 1 tab PO DAILY 04/30/25
zoledronic acid 5 mg/100 mL in mannitol 5 %-water intravenous piggybck (Reclast) 5 mg IV ONCE 04/30/25
Medications Reviewed: Yes
Allergies and Reactions
Patient has Allergies: Yes
Noted Allergies and Reactions:
Allergy/AdvReac Type Severity Reaction Status Date / Time
bee venom protein (honey bee) Allergy Anaphylaxis Verified 05/02/25 06:59
cefaclor (From Ceclor) Allergy Rash Verified 05/02/25 06:59
lorazepam (From Ativan) Allergy hallucinati Verified 05/02/25 06:59
ons
vancomycin AdvReac Intermediate Red Man Verified 06/13/25 06:59
Syndrome
Pertinent Physical Exam
All Other Systems: Negative
Head/Neck: Normal
Lungs: Normal
Heart: Normal
Abdomen: Normal
Extremities: Other (Palpable right DP, nonpalpable left)
Neurological: Normal
Diagnosis / Assessment
PAD
Plan / Procedure
Plan left lower extremity arteriogram, possible VICE PRINCIPAL/stent/IV L today with Dr. Stewart
Anesthesia/Sedation to be done by Anesthesia Provider: Yes
--- NOTE | 2025-05-02 08:34 | W.SUR.POST ---
Surgical Immediate Post Op
Note
Pre Op Diagnosis: PAD
Post Op Diagnosis: Same
Procedure Performed: Left lower extremity arteriogram, drug-coated balloon to in-stent restenosis of left SFA
Primary Surgeon: Pat
Secondary Surgeons: Hien PGY 5
Anesthesia: Local and sedation
Estimated Blood Loss: Less than 2 cc
Fluids: See anesthesia flowsheet
Drains/Shunts: None
Specimens/Cultures: None
Doppler/Duplex/Angio (Y/N): Yes
Complications: None
Operative Findings: Successful DCB
[2025-05-02 08:40] LABS: Glucose - Point of Care 129 mg/dl (70-99)
--- NOTE | 2025-05-02 08:58 | OR.RPT ---
Operative Report
Operative Report
Date of Operation: 05/02/2025
Pre Op Diagnosis:
1. 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
2. Diabetes with peripheral artery occlusive disease
Post Op Diagnosis:
1. 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
2. Diabetes with peripheral artery occlusive disease
Procedure:
1.) Drug-coated balloon angioplasty to left superficial femoral artery in-stent restenosis (6 mm x 100 mm Lutonix DCB)
2.) Diagnostic aortobiiliac arteriogram
3.) Diagnostic left lower extremity arteriogram
4.) Ultrasound-guided percutaneous access to the right common femoral artery
Surgeon: Caesar Stewart III, MD
Power Grader Operator: Alex Stanford MD, PGY5
Anesthesia: Sedation with local
Fluoroscopy:
12.3 min
100 mGy
30.56 gy.cm2
Complications: None
Estimated Blood Loss: Less than 10 cc
History and Indications for Procedure: 69-year-old female with known peripheral arterial occlusive disease and prior left lower extremity endovascular intervention. On surveillance duplex imaging she was found to have velocity elevations consistent
with a significant in-stent restenosis in her left superficial femoral artery stent. She was taken to the operating room for arteriogram and endovascular intervention.
Procedure in Detail: Walker Riley was correctly identified and placed supine on the operating table. After adequate induction of anesthesia the bilateral groins were prepped and draped in the usual sterile fashion. A timeout was performed with the
nursing and anesthesia staff confirming the patient's identity as well as the nature and laterality of the procedure.
The right common femoral artery was identified under ultrasound guidance. The artery was patent. The superior and inferior aspects of the femoral head were identified with radiographic guidance and marked at the skin level. The proposed puncture
site was infiltrated with local anesthesia. Under ultrasound guidance we accessed the right common femoral artery with a micropuncture needle and upsized to a 5 Fr sheath over a Orthogemson wire. The wire and a ShepherSenseware hook flush catheter were
advanced into the distal abdominal aorta and a diagnostic aorto-biiliac arteriogram was performed:
AORTO-ILIAC ARTERIOGRAM:
Aorta: Patent with no stenosis identified
Right common iliac artery: Patent with no stenosis identified
Right external iliac artery: Patent with no stenosis identified
Left common iliac artery: Patent with no stenosis identified
Left external iliac artery: Patent with no stenosis identified
Under roadmap guidance using a Glidewire and the She[employer] Your ImaginationerSenseware hook catheter we selected the left common iliac artery and then the external iliac artery. A catheter was tracked up and over the aortic bifurcation and placed in the distal external iliac
artery. A diagnostic left lower extremity arteriogram was then performed which demonstrated the following:
LEFT LOWER EXTREMITY:
Common femoral artery: Patent. Plaque identified in the mid common femoral artery contributing to mild stenosis
Profunda femoral artery: Patent
Superficial femoral artery: Patent. Stent in the mid/distal SFA is patent. High-grade in-stent restenosis identified in the mid section. Extrinsic calcified plaque at the distal end of the stent contributing to moderate to severe stenosis.
Popliteal artery: Patent
Anterior tibial artery: Patent proximally but diffusely diseased and occludes distally. There is no reconstitution of the dorsalis pedis artery.
Tibioperoneal trunk: Patent
Peroneal artery: Patent but appears to occlude at the ankle
Posterior tibial artery: Patent proximally but occludes. Distal reconstitution at the ankle identified. The posterior tibial then continues across the ankle into the foot to form plantar branches which is the main source of flow into the foot.
ENDOVASCULAR INTERVENTION: Systemic heparin was administered. Exchanged out for a 5 Fr 45 cm sheath over a Storq wire. Selected the superficial femoral artery under roadmap guidance. The in-stent restenosis was crossed. The wire and catheter were
advanced into the popliteal artery. Exchanged out for a V18 wire. A 6 mm x 100 mm drug-coated, held in place for 3 minutes angioplasty balloon was placed across the stenosis under roadmap guidance. The balloon was inflated to nominal pressure and
then deflated and removed over the wire. Subsequent arteriogram demonstrated significant improvement with a widely patent superficial femoral artery stent. Residual stenosis was identified in the area of extrinsic calcified plaque towards the
distal end of the stent.
COMPLETION ARTERIOGRAM: Patent superficial femoral artery stent with significant improvement compared to pretreatment. Patent popliteal artery. Tibial artery disease as dictated above.
Satisfied with this result we concluded the procedure. The sheath tip was pulled back into the right external iliac artery. Protamine was administered. The sheath was secured in place with the plan to pull it in the recovery area.
The patient tolerated the procedure well and was taken to the recovery area in stable condition.
Attestation: I was present and responsible for the entire procedure.
Signed:
Caesar Stewart III, MD
Vascular Surgery
[facility]
[2025-05-02] MEDS: PLAVIX 75 MG PO (09:09)
[2025-05-02] MEDS: LOW STRENGTH ASPIRIN 81 MG PO (09:09)
[2025-05-02 12:12] LABS: Glucose - Point of Care 129 mg/dl (70-99)
== END 2025-05-02 14:10 | disposition home or self-care (01) ==
LOC: CATH 06:08
PROVIDERS: ATTENDING PHYSICIAN Surgery Vascular Surgery; OTHER PHYSICIAN Internal Medicine Cardiovascular Disease; PRIMARYCARE PHYSICIAN Emergency Medicine
DX: E11.51 Type 2 diabetes mellitus with diabetic peripheral angiopathy without gangrene (principal); I70.212 Atherosclerosis of native arteries of extremities with intermittent claudication, left leg; T82.856A Stenosis of peripheral vascular stent, initial encounter; I25.10 Atherosclerotic heart disease of native coronary artery without angina pectoris; I12.9 Hypertensive chronic kidney disease with stage 1 through stage 4 chronic kidney disease, or unspecified chronic kidney disease; E11.22 Type 2 diabetes mellitus with diabetic chronic kidney disease; N18.30 Chronic kidney disease, stage 3 unspecified; E78.00 Pure hypercholesterolemia, unspecified; G47.33 Obstructive sleep apnea (adult) (pediatric); Z79.82 Long term (current) use of aspirin; Z79.4 Long term (current) use of insulin; Z79.84 Long term (current) use of oral hypoglycemic drugs; Z79.85 Long-term (current) use of injectable non-insulin antidiabetic drugs; Z79.02 Long term (current) use of antithrombotics/antiplatelets
CPT/HCPCS: 37224; C1769; C1894; 75625; 75716; 80048; 82962; 85027; 85610; 85730; C2623; Q9967

== ENCOUNTER → 2025-05-19 11:04 | Outpatient (REF) | payer MEDICARE, OTHER, SELFPAY | LOC: RAD 11:04 | PROVIDERS: ATTENDING PHYSICIAN Surgery Vascular Surgery; FAMILY PHYSICIAN Emergency Medicine | DX: I73.9 Peripheral vascular disease, unspecified (principal) | CPT/HCPCS: 93922; 93925 ==

== ENCOUNTER → 2025-05-26 14:29 | Outpatient (REF) | payer MEDICARE, OTHER, SELFPAY | LOC: RAD 14:29 | PROVIDERS: ATTENDING PHYSICIAN Internal Medicine Rheumatology; FAMILY PHYSICIAN Emergency Medicine | DX: M79.672 Pain in left foot (principal) | CPT/HCPCS: 73630 ==